=== PATIENT | male | born 1990 | race Caucasian/White ===

== ENCOUNTER 2018-09-13 16:58 | Emergency (ER) | payer OTHER ==
[~2018-09-13] VITALS: Ht 180.3 cm; Wt 110.2 kg
[2018-09-13 17:02] VITALS: BP 123/59; Ht 180.3 cm; Wt 110.2 kg
== END 2018-09-13 20:22 | disposition home or self-care (01) ==
LOC: ED 16:58
DX: S61.412A Laceration without foreign body of left hand, initial encounter (principal); Z88.2 Allergy status to sulfonamides; Z91.012 Allergy to eggs; Z91.011 Allergy to milk products; W25.XXXA Contact with sharp glass, initial encounter; Y93.89 Activity, other specified; Y92.89 Other specified places as the place of occurrence of the external cause; Y99.8 Other external cause status
CPT/HCPCS: A4570; J2001; Q0092

== ENCOUNTER 2018-11-10 23:20 | Emergency (ER) | payer OTHER ==
[~2018-11-10] VITALS: Ht 177.8 cm; Wt 95.3 kg
[2018-11-10 23:27] VITALS: Ht 177.8 cm; Wt 95.3 kg
[2018-11-10 23:58] LABS: BASOPHIL % 0.4 % (0-2); PLATELET COUNT 253 x10^3mcL (130-400); RED CELL DISTRIBUTION WIDTH 12.1 % (11.5-14.5)
[2018-11-11 00:09] LABS: CALCIUM 9.8 mg/dL (8.5-10.1); CARBON DIOXIDE 24.1 mmol/L (21-32); CHLORIDE SERUM 99 mmol/L (98-107); CREATININE SERUM 1.3 mg/dL (0.7-1.3); GFR1 > 60 mL/min; GLUCOSE SERUM 109 mg/dL (74-106); POTASSIUM SERUM 3.1 mmol/L (3.5-5.1); SODIUM SERUM 137 mmol/L (136-145)
[2018-11-11 00:15] LABS: ALBUMIN 4.6 g/dL (3.4-5.0); ALKALINE PHOSPHATASE 88 U/L (46-116); ALT/SGPT 53 U/L (16-63); AST/SGOT 43 U/L (15-37); BILIRUBIN TOTAL 1.6 mg/dL (0.20-1.00)
[2018-11-11 01:14] LABS: UA SPECIFIC GRAVITY >=1.030 (1.005-1.035); microscopic required? YES; urine erythrocyte NEGATIVE (NEGATIVE)
[2018-11-11 01:23] LABS: AMPHETAMINE QUAL UR NONE DETECTED (See below)
[2018-11-11 02:52] VITALS: BP 149/96
== END 2018-11-11 02:53 | disposition home or self-care (01) ==
LOC: ED 23:20
PROVIDERS: Emergency Medicine
DX: N39.0 Urinary tract infection, site not specified (principal); Z88.2 Allergy status to sulfonamides; Z91.012 Allergy to eggs; Z91.011 Allergy to milk products
CPT/HCPCS: J1885; J2270; J2405; J3010; J7030